=== PATIENT | female | born 1965 | race Caucasian/White ===

== ENCOUNTER → 2020-11-11 15:41 | Outpatient (CLI) | payer OTHER, SELFPAY ==
--- NOTE | 2020-11-11 15:46 | BI_ITS ---
MAMMOGRAPHY - BILATERAL SCREENING REASON FOR EXAM: Female, 55 years old. Routine annual screening examination. PERTINENT HISTORY: Aunt with breast cancer. TECHNIQUE: Digital bilateral breast axel (3D mammographic acquisition) in the CC and MLO projections. 2-D mediolateral oblique (MLO) and craniocaudad (CC) views of both breasts were obtained. CAD: Full Field Digital Mammography with Computer Added Detection was performed. COMPARISON: Comparison is made with prior outside examination dated 05/03/2016. FINDINGS: Breast Composition: There are scattered areas of fibroglandular density. There are no dominant masses or suspicious calcifications. Stable benign-appearing bilateral axillary lymph nodes. No other significant abnormalities are identified. There has been no significant change since the prior study. BI/SCRN MAMM (CAD)W/AXEL BILAT IMPRESSION: Stable bilateral screening mammogram. Yearly follow-up mammogram recommended. (A) ASSESSMENT CATEGORY: BIRADS Category 2: Benign. A letter regarding these results will be sent to the patient by the facility within 30 days. Approximately 10% of breast cancers are not detected by mammography. A normal mammogram should not delay biopsy of a clinically suspicious abnormality. [id number] Electronically Signed: Adiel Hurtado MD at 13:26 EDT , Service support ,
== END ==
PROVIDERS: Referring Provider Student in an Organized Health Care Education/Training Program; Visit Provider Student in an Organized Health Care Education/Training Program
DX: Z12.31 Encounter for screening mammogram for malignant neoplasm of breast (principal)
CPT/HCPCS: 77063; 77067

== ENCOUNTER 2021-02-05 07:20 | Day surgery (SDC) | payer OTHER, SELFPAY ==
[2021-02-03 16:46] LABS: Hematocrit 42.9 % (37-47); Hemoglobin 14.6 g/dL (12.0-15.0); Mean Corpuscular Hgb 29.5 pg (27.0-32.0); Mean Corpuscular Volume 86.7 fL (81-99); Mean Platelet Vol. 9.8 fl (6.2-12.0); Platelet Count 203 K/mm3 (150-450); Red Blood Count 4.95 M/mm3 (4.2-5.4); White Blood Count 7.3 K/mm3 (4.4-11.0)
[2021-02-03 17:50] LABS: Anion Gap 6 (5-15); BUN 14 mg/dL (7-18); BUN/Creat Ratio 19.2 RATIO (10-20); Calcium,Total 9.1 mg/dL (8.5-10.1); Chloride 105 mmol/L (98-107); Creatinine, Serum 0.73 mg/dL (0.55-1.02); EST Glomerular Filtration Rate 89 mL/min (>60); Est Glom Filt Rate - Afr Amer 107 mL/min (>60); Glucose 82 mg/dL (74-106); Potassium 3.7 mmol/L (3.5-5.1); Sodium Level 140 mmol/L (136-145)
[2021-02-05] VITALS (10 sets, daily range): BP systolic 122–160; BP diastolic 84–105; PULSE 71–83; RESP 16–17; TEMP 35.8–36.8; O2SAT 93–96; BMI 47.0
--- NOTE | 2021-02-05 07:23 | HP.PCM.OB_ITS ---
History and Physical Date of Admission: 02/05/21 Date: 02/03/2021 Name: VIRGINIA MURGUIA Age: 55 Date of : 1965 HISTORY OF PRESENT ILLNESS: On 02/03/2021, Virginia Murguia, a 55 year old female 2 0 0 0 2, presented for: -- Pre-Op -- Virginia is here for preop. [facility] for 02-05-21 for hysteroscoy, D Symphion. Consents signed. Instructions given. Voiced understanding. There have been no changes to her health since her last visit. Allergy and medication lists current. LSS as above. Presents to preop visit for hysterectomy, dilation and curettage for recurrent postmenopausal bleeding in setting of 12mm endometrial stripe. Prior EMB on 11/07/20 showed profilerative endometrium. shm ALLERGIES: No Known Drug Allergies MEDICATIONS HISTORY: Patient is also takin. No Meds REVIEW OF SYSTEMS: GENERAL - Denies fever, or chills SKIN - Denies skin changes EYES - Denies visual changes EARS - Denies difficulty hearing NOSE - Denies nasal congestion or bleeding MOUTH - Denies sore throat or difficulty swallowing NECK - Denies pain or swelling RESPIRATORY - Denies shortness of breath or wheezing CARDIOVASCULAR - Denies palpitations or chest pain GASTROINTESTINAL - IBS GENITOURINARY - Denies dysuria, frequency of urination, incontinence of urine MUSCULOSKELETAL - Denies joint or muscle pain NEUROLOGICAL - Denies localized numbness or weakness PSYCHIATRIC - Denies depression or anxiety ENDOCRINE - Denies heat or cold intolerance, weight loss or gain HEMATO-IMMUNOLOGIC - Denies excesive bleeding with cuts MENSTRUAL HISTORY: LMP Known?- Approximate-Month Known, LMP - 09/20/20 SOCIAL HISTORY: Alcohol Use - RARELY Smoking - Never Exercise - walking Seat Belt Use - always Employer - [employer] 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 Illicit Drug Use - None Sexual Activity - single sexual partner Residence - lives with SO Control - prior tubal PHYSICAL EXAMINATION BP- 126/84 Sitting, Right arm, large cuff Weight- 267.0 lbs Height- 62.75 inch BMI:[id number] CONSTITUTIONAL - NAD, well nourished, and well developed SKIN - No rash, lesions, or ulcers HEENT - normocephalic, atraumatic, sclerae anicteric NECK - No nodes, no nuchal rigidity and thyroid normal size and texture LUNGS - CTA x2 without wheezes, crackles or rales CARDIAC - Regular rate and rhythm without rubs, murmurs, or gallops NEUROLOGICAL - normal gait, normal balance, normal motor PSYCHIATRIC - A and O to time, place, person, mood and affect ASSESSMENT: 1. Postmenopausal Bleeding PLAN BY DIAGNOSIS: 1. Postmenopausal Bleeding Plan for hysteroscopy, dilation and curettage, Symphion as indicated for polypectomy Dfdx uterine polyp, profilerative endometrium, endometrial polyp Counseled on procedural indications, risks, benefits, alternatives Consents signed and reviewed Preop labs today NPO @ [place] prior to procedure, preop packet reviewed Assessment & Plan Assessment/Plan (1) Postmenopausal bleeding: (2) Endometrial thickening on ultrasound:
[2021-02-05] MEDS: Lactated Ringers 1,000 ML 100 ML IV ×2 (08:40→09:46)
--- NOTE | 2021-02-05 08:41 | HP.PCM_ITS ---
HPI - General General Date of Admission: 02/05/21 HPI Narrative Surgical History and Physical Date: 02/05/2021 Name: VIRGINIA MURGUIA Age: 55 Date of : 1965 Virginia Murguia, a 55 year old female 2 0 0 0 2, presents for Hysteroscopy, D on February 05, 2021 at 11:30. -- Plan for hysteroscopy, dilation and curettage for recurrent postmenopausal bleeding in setting of 12mm endometrial stripe. Prior EMB on 11/07/20 showed profilerative endometrium. shm MEDICATIONS HISTORY: Patient is also takin. No Meds ALLERGIES: No Known Drug Allergies Infections - Chicken pox and covid Illnesses - none Accidents - None Hospitalizations - None Review of Systems: GENERAL - Denies fever, or chills SKIN - Denies skin changes EYES - Denies visual changes EARS - Denies difficulty hearing NOSE - Denies nasal congestion or bleeding MOUTH - Denies sore throat or difficulty swallowing NECK - Denies pain or swelling RESPIRATORY - Denies shortness of breath or wheezing CARDIOVASCULAR - Denies palpitations or chest pain GASTROINTESTINAL - IBS GENITOURINARY - Denies dysuria, frequency of urination, incontinence of urine MUSCULOSKELETAL - Denies joint or muscle pain NEUROLOGICAL - Denies localized numbness or weakness PSYCHIATRIC - Denies depression or anxiety ENDOCRINE - Denies heat or cold intolerance, weight loss or gain HEMATO-IMMUNOLOGIC - Denies excesive bleeding with cuts SOCIAL HISTORY: Alcohol Use - RARELY Smoking - Never Exercise - walking Seat Belt Use - always Employer - [employer] 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 2015 ablation ; - 2. D and C, 2017 ; - 3. 2002 lap latasha ; - 4. laparoscopy for endometriosis 5. Hand surgery PHYSICAL EXAM BP- 126/84 Sitting, Right arm, large cuff Weight- 267.56708 lbs Height- 62.75 inch BMI:[id number] CONSTITUTIONAL - NAD, well nourished, and well developed SKIN - No rash, lesions, or ulcers HEENT - normocephalic, atraumatic, sclerae anicteric NECK - No nodes, no nuchal rigidity and thyroid normal size and texture LUNGS - CTA x2 without wheezes, crackles or rales CARDIAC - Regular rate and rhythm without rubs, murmurs, or gallops NEUROLOGICAL - normal gait, normal balance, normal motor PSYCHIATRIC - A and O to time, place, person, mood and affect External Genitial Vagina - non-tender without lesions Urethra/Urethral Meatus - non-tender Bladder - non-tender Vagina - vaginal sauceda are pink and moist without loss of rugae and no evidence of atropy Cervix - without cervical motion tenderness and has normal size and features without evident lesions Uterus - 5-6 cm in size, mobile and nontender Adnexa - clear without massess or tenderness [facility] Medical History (Updated 02/05/21 @ 07:[address] Caprice Childs MD) Alcohol use History of edema History of IBS Non-smoker Wears glasses Home Medications NK 01/29/21 [History Last Taken Unknown] Allergy/AdvReac Type Severity Reaction Status Date / Time No Known Allergies Allergy Verified 01/29/21 14:07 Surgical History Hx laparoscopic cholecystectomy Hx of dilation and curettage Hx of hand surgery Hx of laparoscopy Hx of tubal ligation Social History Smoking Status: Never smoker Vital Signs Vital Signs Vital Signs: 02/05/21 07:56 02/05/21 07:59 Temperature 97 F L Temperature Source Temporal Pulse Rate 80 Respiratory Rate 17 Respiratory Pattern Normal Blood Pressure 123/84 H Blood Pressure Mean 97 Blood Pressure Source Monitor Blood Pressure Position Semi-Fowlers Blood Pressure Location Left Arm Pulse Ox 96 Oxygen Delivery Method Room Air Weight Weight: 120.4 kg Body Mass Index (BMI) 47.0 Results Lab / Micro Data Result Diagrams: 02/03/21 16:11 02/03/21 16:11 Assessment & Plan Assessment/Plan (1) Endometrial thickening on ultrasound: (2) Postmenopausal bleeding: PLAN: ASSESSMENT/PLAN: 1. Postmenopausal Bleeding Plan for hysteroscopy, dilation and curettage, Symphion as indicated for polypectomy Dfdx uterine polyp, profilerative endometrium, endometrial polyp Counseled on procedural indications, risks, benefits, alternatives Consents signed and reviewed Preop labs appropriate COVID negative
--- NOTE | 2021-02-05 08:45 | EMB_PTH ---
PATIENT: ASHISH PEPPER [place] [facility] [place][id number] AGE/SX: 55/F ROOM: RE02/05/[address]: Dr. Caprice Childs MD : 1965 BED: DIS: 02/05/2021 SPEC #: [id number] RECD: 02/05/21 10:43 STATUS: HANNAH REJaqui #: [id number] PAUL: 02/05/21 08:[address]: Caprice Acosta DEPT: SURGICAL PATHOLOGY RECD BY: Aliyah Vieyra Tissues: Endometrium, NOS Procedures: Surgery Specimen Level IV HEADER OPERATION: Hysteroscopy, D & C Symphion PRE-OP DIAGNOSIS: Postmenopausal bleeding TISSUE SUBMITTED: Endometrial sampling MICROSCOPIC DIAGNOSIS Endometrium, biopsy: Mildly disordered transitional endometrium. Fragments of benign myometrial tissue. AM:jerod 02/06/2021 COMMENT Case has been reviewed in consultation with Dr. Palacio who concurs with the above diagnosis. IDC:SJ MICROSCOPIC DESCRIPTION Slides are reviewed. GROSS DESCRIPTION Received in fixative is one container labeled with the patient's name and designated endometrial sampling. The specimen consists of multiple fragments of hung-pink to hemorrhagic soft tissue that in aggregate measure 2.5 x 1 x 0.2 cm. The specimen is totally submitted in one cassette. / BARON:jerod 02/05/21 TC:5 [facility]: [id number]
[2021-02-05] MEDS: Lidocaine 1% (20 ml mdv) 20 ML Vial (08:58)
--- NOTE | 2021-02-05 09:44 | PCM.DC ---
Discharge Instructions Diet Discharge Diet: No restrictions Activity Discharge Activity: Return to Normal Activity May resume sexual activity in: 4 weeks Dressing / Incision Call your doctor if you observe: Fever of 101 or Higher, Using more than 1 pad per hour, Shortness of breath, Chest pain, Calf discomfort and Uncontrolled pain Follow Up Care Please Follow Up With: Caprice Childs MD When: 1-2 weeks Test Results: Test results from this visit will be discussed in further detail at your follow-up appointment, if applicable. Discharge Plan Admission Primary Reason for Your Visit: Hysteroscopy, Dilation and curettage Attending Provider: Caprice Acosta Discharge Orders/Prescriptions Prescriptions: New ibuprofen 800 mg tablet 800 mg PO Q8H PRN (Reason: pain) Qty: 30 RF: 0 oxycodone 5 mg capsule 5 mg PO Q6H PRN (Reason: pain) 7 Days Qty: 3 RF: 0 Referrals / Follow Up: GEE MORGAN [Other] Disposition Disposition (needs filled in before D/C Order can be placed): Home, Self Care
--- NOTE | 2021-02-05 10:47 | OP.PCM_ITS ---
Problems Associated Problem List Diagnoses (1) Status post hysteroscopy: (2) Endometrial thickening on ultrasound: (3) Postmenopausal bleeding: Report of Operation Date of Procedure: 02/05/21 Pre-Operative Diagnosis: 1. Postmenopausal bleeding 2. Endometrial thickening Post-Operative Diagnosis: 1. Postmenopausal bleeding 2. Endometrial thickening 3. Uterine adhesions Surgery/Procedure Performed:: 1. Hysteroscopy 2. Resection of intrauterine adhesions 3. Dilation and curettage Description of Surgical Findings:: Dense scar tissue within the lower and mid uterine cavity Large nabothian cyst at 6:00 on the cervix Surgeon: Caprice Acosta Type of Anesthesia: Local MAC Anesthesiologist: Maksim Jenkins Specimen's removed: Endometrial sampling Estimated Blood Loss (mL): 10 Fluids Replaced: 800 mL Description of Procedure: Indications: 55-year-old postmenopausal woman with a remote history of endometrial ablation approximately 5 years ago presents with recurrent postmenopausal bleeding. Bleeding began earlier this year. Pelvic ultrasound demonstrated 12 mm endometrial stripe. Subsequent endometrial biopsy was negative for pathology. Given recurrence of bleeding I advised her to proceed with hysteroscopy, dilation and curettage. Procedural risks, benefits, indications were reviewed and patient agreeable to proceed. Informed consent was obtained. Procedure: Patient was brought to the operating room and sinus performed. She is placed in the dorsal supine position and induced under MAC. She was repositioned to dorsolithotomy and examination under anesthesia was performed and straight catheterization of the bladder was done. The patient was placed into high lithotomy and a speculum placed vaginally. The cervix was injected at the anterior cervical lip using 1% lidocaine and a single-tooth tenaculum was placed at this site. Paracervical block was placed utilizing a total of 20 cc of 1% lidocaine and all. The uterus sounded and cervix was subsequently dilated. Hysteroscopy was performed using the Symphion scope demonstrating dense intrauterine adhesions preventing visualization of the uterine fundus and tubal ostia. I proceeded with Symphion resectoscopic hysteroscopy to resect the scar tissue until endometrium was adequately visualized and I could see the uterine fundus. Some scarring obstructing the tubal ostia visualization rem ained. Endometrial sampling was performed using the Symphion resector. Sharp curettage was subsequently performed. The procedure was complete. The tenaculum was removed from the cervix and the tenaculum site was not hemostatic at the left. An Allis clamp was placed here for 2 minutes. The Allis clamp was removed and hemostasis obtained. The patient was placed into dorsal supine, awakened, transferred to the recovery room without complication. Sponge counts were correct x2. Complications None Admit VTE Documentation VTE Present on Admission: No VTE Mechan Device Prophylaxis: SCD's VTE Pharm Prophylaxis ordered?: No
== END 2021-02-05 12:19 | disposition home or self-care (01) ==
LOC: SDC 07:21 → AC 07:21
PROVIDERS: Referring Provider Obstetrics & Gynecology; Visit Provider Obstetrics & Gynecology
PROC: 0UB98ZZ Excision of Uterus, Via Natural or Artificial Opening Endoscopic (ICD-10-PCS; CPT 58558; principal; 2021-02-05 08:30)
DX: N95.0 Postmenopausal bleeding (principal); R93.89 Abnormal findings on diagnostic imaging of other specified body structures; N88.8 Other specified noninflammatory disorders of cervix uteri; Z90.49 Acquired absence of other specified parts of digestive tract; Z86.16 Personal history of COVID-19
CPT/HCPCS: 58558; 36415; 80048; 85027; 86850; 86900; 86901; 88305; J7120; J2405

== ENCOUNTER 2021-05-07 05:21 | Day surgery (SDC) | payer OTHER, SELFPAY ==
--- NOTE | 2021-05-01 13:45 | EKG12_ITS ---
Test Reason : PRE OP Blood Pressure : / mmHG Vent. Rate : 077 BPM Atrial Rate : 077 BPM P-R Int : 152 ms QRS Dur : 078 ms QT Int : 382 ms P-R-T Axes : 045 078 035 degrees QTc Int : 432 ms Normal sinus rhythm Normal ECG Confirmed by DENAE SAUL, BLAKE ([id number]), proposal editor JORGE DIAZ ([id number]) on 05/04/2021 10:43:08 AM Referred By: Dali Arreaga Confirmed By:BLAKE PHILIPPE MD
[2021-05-01 14:48] LABS: Hematocrit 39.6 % (37-47); Hemoglobin 13.3 g/dL (12.0-15.0); Mean Corp Hgb Conc 33.6 g/dL (32-36); Mean Corpuscular Hgb 29.1 pg (27.0-32.0); Mean Corpuscular Volume 86.7 fL (81-99); Mean Platelet Vol. 9.9 fl (6.2-12.0); Platelet Count 199 K/mm3 (150-450); RBC Distribution Width CV 12.2 % (11.6-14.6); RBC Distribution Width SD 38.6 fl (35.1-43.9); Red Blood Count 4.57 M/mm3 (4.2-5.4)
[2021-05-01 15:17] LABS: Anion Gap 4 (5-15); BUN 13 mg/dL (7-18); Calcium,Total 8.8 mg/dL (8.5-10.1); Chloride 109 mmol/L (98-107); Creatinine, Serum 0.81 mg/dL (0.55-1.02); EST Glomerular Filtration Rate 78 mL/min (>60); Est Glom Filt Rate - Afr Amer 94 mL/min (>60); Glucose 100 mg/dL (74-106); Potassium 3.6 mmol/L (3.5-5.1); Sodium Level 142 mmol/L (136-145)
[2021-05-01 15:17] LABS: Magnesium 2.3 mg/dL (1.6-2.6)
--- NOTE | 2021-05-06 20:52 | PCM.HP.BLA ---
History and Physical Date of Admission: 05/07/21 HISTORY OF PRESENT ILLNESS: On 05/01/2021, Virginia Murguia, a 56 year old female 2 0 0 0 2, presented for total laparoscopic hysterectomy bilateral salpingo-oophorectomy, cystoscopy for post menopausal bleeding in the setting of intrauterine adhesions. ALLERGIES: No Known Drug Allergies MEDICAL HISTORY: Denies MEDICATIONS HISTORY: Patient is also takin. No Meds PAST HISTORY: Breast/Ovarian/Colon Cancers - Denies Infections - Chicken pox and covid Illnesses - none Accidents - None History of Abnormal PAPS - unknown Hospitalizations - None SURGICAL HISTORY: 1. 2015 ablation 2. D and C, 2018 3. 2002 lap latasha 4. 02/05/2021 Hysteroscopy resection of intrauterine adhesions d& c Caprice Childs MD MENSTRUAL HISTORY: LMP Known?- Approximate-Month Known, LMP - 09/20/20 PAST PREGNANCIES: Total Pregnancies - 2; Full Term Pregnancies - 2; Premature - 0; Abortions, Induced - 0; Abortions, Spontaneous - 0; Ectopics - 0; Multiple Births - 0; Living Children - 2 FAMILY HISTORY: No hx of blood clots, bleeding disorders SOCIAL HISTORY: Alcohol Use - RARELY Smoking - Never Drug use - never REVIEW OF SYSTEMS: GENERAL - Denies fever, or chills SKIN - Denies skin changes EYES - wears eye glasses EARS - Denies difficulty hearing NOSE - Denies nasal congestion or bleeding MOUTH - Denies sore throat or difficulty swallowing NECK - Denies pain or swelling RESPIRATORY - Denies shortness of breath or wheezing CARDIOVASCULAR - Denies palpitations or chest pain GASTROINTESTINAL - Denies nausea, vomiting, diarrhea, constipation GENITOURINARY - Denies dysuria, frequency of urination, incontinence of urine MUSCULOSKELETAL - Denies joint or muscle pain NEUROLOGICAL - Denies localized numbness or weakness PSYCHIATRIC - Denies depression or anxiety ENDOCRINE - Denies heat or cold intolerance, weight loss or gain HEMATO-IMMUNOLOGIC - Denies excessive bleeding with cuts BP- 110/74 Sitting, Right arm, large cuff Temp- 98.3 Taken Orally Weight- 269.0 lbs Height- 62.75 inch BMI:48.03 CONSTITUTIONAL - NAD, well nourished, and well developed SKIN - No rash, lesions, or ulcers HEENT - Normocephalic, PERRLA, EOMI NECK - No nodes, no nuchal rigidity and thyroid normal size and texture LUNGS - CTA x2 without wheezes, crackles or rales CARDIAC - Regular rate and rhythm without rubs, murmurs, or gallops ABDOMEN - Without hepatosplenomegaly, distention, masses, rebound, or guarding; normal bowel sounds; no hernias EXTREMITIES - No edema or calf tenderness NEUROLOGICAL - Cranial nerves II-XII grossly intact PSYCHIATRIC - A and O to time, place, person, mood and affect ASSESSMENT: PLAN BY DIAGNOSIS: 1. Postmenopausal Bleeding Planned for TLH-BSO cystoscopy for post menopausal bleeding. R/B/A discussed: Risks include but are not limited to: risk of bleeding to the point of transfusion, infection, injury to surrounding tissues including bowel/bladder/major vessels requiring pack catheter, VTE, ICU admission.
[2021-05-07] VITALS (12 sets, daily range): BP systolic 97–148; BP diastolic 66–89; PULSE 74–83; RESP 15–16; TEMP 35.8–36.6; O2SAT 92–98; BMI 47.2
[2021-05-07] MEDS: Gabapentin 600 MG Tablet PO (05:30)
[2021-05-07] MEDS: Heparin Injection 5,000 UNITS/ML Syringe 5000 UNITS SC (05:30)
[2021-05-07] MEDS: Lactated Ringers 1,000 ML 40 ML IV ×3 (06:14→10:46)
[2021-05-07] MEDS: Celecoxib 200 MG Capsule 400 MG PO (06:14)
[2021-05-07] MEDS: Acetaminophen 500 MG Tablet 1000 MG PO (06:14)
[2021-05-07 06:26] LABS: Bedside Glucose 78 mg/dL (70-110)
[2021-05-07] MEDS: Cefazolin 2 GM in 0.9% Normal Saline 100 ML IV (07:30)
--- NOTE | 2021-05-07 07:30 | HYST_PTH ---
PATIENT: ASHISH PEPPER [place] [facility] [place][id number] AGE/SX: 56/F ROOM: RE05/07/[address]: Dr. Dali Arreaga, : 1965 BED: DIS: 05/07/2021 SPEC #: [id number] RECD: 05/07/21 10:19 STATUS: HANNAH SHANNAN #: [id number] PAUL: 05/07/21 07:[address]: Dali Arreaga DEPT: SURGICAL PATHOLOGY RECD BY: Aliyah Vieyra Tissues: Uterus, NOS Procedures: Surgery Specimen Level V HEADER OPERATION: Total laparoscopic hysterectomy, salpingo-oophorectomy, cystoscopy PRE-OP DIAGNOSIS: Postmenopausal bleeding TISSUE SUBMITTED: Uterus, cervix, bilateral fallopian tubes and ovaries MICROSCOPIC DIAGNOSIS Uterus, hysterectomy: Cervix ? nabothian cysts and mild chronic inflammation. Endometrium ? simple hyperplasia without atypia. Myometrium ? adenomyosis. Right fallopian tube ? hemosalpinx and focal changes consistent with endometriosis. Right ovary ? corpora albicantia. Left fallopian tube ? hemosalpinx. Left ovary ? corpus luteal cyst and corpora albicantia. AM:jerod 05/11/2021 MICROSCOPIC DESCRIPTION Slides are reviewed. GROSS DESCRIPTION Received in fixative is one container labeled with the patient's name and designated uterus, cervix, bilateral fallopian tubes and ovaries. The specimen consists of a hysterectomy specimen consisting of uterus with cervix and attached bilateral fallopian tubes and ovaries. The uterus with cervix weighs 127 gm and measures 8 x 6 x 4.5 cm. The serosal surface is smooth. The ectocervical mucosa is unremarkable. The external os is oval in contour. The endocervical canal measures 3 cm in length and the endocervical mucosa is unremarkable. Sections of the cervix reveal a few cysts filled with mucoid material. The triangular endometrial cavity measures 4 cm in length and up to 3 cm in width. The endometrium measures 0.1 cm in thickness. A submucosal solid nodular mass is noted measuring 1.2 cm in greatest dimension, ? a possible submucosal leiomyoma. Sections of the uterine wall reveal trabeculated cut surfaces suspicious for adenomyosis. The uterine wall measures up to 3 cm in thickness. The right fallopian tube measures 5 cm in length and 0.5 to 1 cm in diameter. The proximal portion of the uterine wall measures up to 1 cm in diameter. The fallopian tube appears to be interrupted in the middle. The fimbrial end is identified. Sections of the proximal portion of the fallopian tube reveals dilated lumen. The soft to cystic right ovary measures 3.5 x 2 x 1.5 cm. Sections reveal a few cysts, the largest measuring 0.5 cm in greatest dimension. The left fallopian tube measures 4 cm in length and up to 0.7 cm in diameter. The fimbrial end is identified. The proximal portion of the fallopian tube is dilated and filled with bloody fluid. The fallopian tube appears to be interrupted in the middle. The soft to cystic left ovary measures 3 x 2 x 1.6 cm. Multiple metallic clips are noted on the surface. Sections reveal a few cysts, the largest cyst measures 0.4 cm in greatest dimension. Paradi Operator sections are submitted in 11 cassettes as follows: 1 - anterior cervix, 2 - posterior cervix, 3 & 4 - anterior uterine wall, 5 & 6 - posterior uterine wall, 7 ? submucosal nodular mass, entirely submitted, 8 ? right fallopian tube, 9??right ovary, 10 ? left fallopian tube, 11 ? left ovary. / SJ:jerod 05/07/21 The remainder of endometrium and adjacent myometrium are submitted in cassettes 12-15. / AM:jerod 05/08/21 TC:5 CPT: 25298
[2021-05-07] MEDS: Ondansetron 4 MG/2 ML Vial IV (09:39)
--- NOTE | 2021-05-07 09:40 | PCM.OPRPT ---
Report of Operation Date of Procedure: 05/07/21 Pre-Operative Diagnosis: Postmenopausal bleeding Post-Operative Diagnosis: Postmenopausal bleeding Surgery/Procedure Performed:: Total laparoscopic hysterectomy, bilateral salpingo-oophorectomy, cystoscopy Description of Surgical Findings:: Normal-appearing external genitalia. Minimal uterine descensus. Uterus sounded to 8 cm. Normal-appearing bilateral ovaries and fallopian tubes, normal-appearing uterus. Clips noted on left ovary. Cystoscopy: Intact bladder dome, bilateral ureteral jets. traveling crane operator: Aguilar Arreaga Type of Anesthesia: General Estimated Blood Loss (mL): 250cc Fluids Replaced: 1400 cc Description of Procedure: Indications/Risks/Benefits: 56-year-old female with postmenopausal bleeding and a history of endometrial ablation. Decision made for total laparoscopic hysterectomy, bilateral salpingo-oophorectomy, cystoscopy was made. All risk, benefits, alternatives were discussed with the patient. Risks include but are not limited to: Risk of bleeding to the point of transfusion, infection, injury to surrounding tissue including bowel/bladder/large vessels potentially requiring prolonged Carrero catheter use, VTE, ICU admission. Patient aware and consented. Procedure: Patient taken to the operating room and placed under general anesthesia. Patient placed in the dorsal lithotomy position and prepped and draped in the usual sterile fashion. Weighted speculum placed in the posterior vagina and Azevedo retractor used to visualize the cervix. Anterior lip of the cervix grasped with a single-tooth tenaculum. Cervix sequentially dilated and uterus sounded to 8 cm. [id number] stitches placed at the 3 and 9 o'clock position on the cervix. Medium manipulator placed. Retractors removed. Gloves changed and attention turned to the anterior abdominal wall. Vertical supraumbilical incision made with scalpel subcutaneous tissue dissected from fascia bluntly. Fascia grasped with Ean clamps and scalpel incised fascia between. Each end of the fascial incision tagged with suture. Peritoneum had been entered. 10 trocar placed. Abdomen insufflated. Right and left trochars placed under direct visualization. Right 8 mm, left 5 mm. AirSeal on right trocar. Bilateral ureters identified. Abdomen inspected and noted as above. Left round ligament coagulated and cut. Anterior leaf of the broad ligament and vesicouterine peritoneum identified, dissected. Bladder flap dissected away from the anterior uterus and cervix. Left IP ligament coagulated and cut dissection carried down the left side of the uterus. Left uterine vessels identified coagulated and cut in several locations. Attention then turned to the right side of the uterus and right round ligament incised and anterior leaf of the broad ligament dissected away towards the bladder. Vesicouterine peritoneum identified and bladder flap continued and completed across towards midline. Further dissection of bladder peritoneum away from the anterior cervix completed. Right IP ligament coagulated and cut. Dissection carried down the right side of the uterus. Right uterine arteries identified coagulated cut and several locations. Bilateral uterine arteries coagulated and cut allowing them to fall away from the cervix and colpotomy cup. Uterus anteverted and posterior colpotomy made carrying around counterclockwise. Colpotomy completed. Uterus, bilateral tubes and ovaries removed through the vagina. Abdomen inspected noting hemostasis at the vaginal cuff. Abdomen desufflated. Moved below to close colpotomy vaginally. Vagina grasped with Allis clamps. Run locking stitch started at each corner colpotomy and carried towards the midline, sutures tied together at midline. Vagina irrigated and closure was noted to be hemostatic. Abdomen reinsufflated for inspection of the abdomen vaginal closure was hemostatic, IP hemostatic bilaterally. Abdomen desufflated, trochars removed. Carrero catheter removed. Cystoscopy completed noting above findings. Abdominal incisions closed. Supraumbilical incision: Fascia grasped with Ean clamps and closed with a running stitch. Skin closed with a running subcuticular stitch. Bilateral lower quadrant incisions closed with suture. Skin glue placed. At the end of the procedure all needle, lap, sponge counts were correct. UOP: 400cc Complications None
--- NOTE | 2021-05-07 09:58 | PCM.DC ---
Discharge Instructions Diet Discharge Diet: No restrictions Activity Discharge Activity: Return to Normal Activity and May Shower May resume sexual activity in: 6 weeks Weight Bearing Status: Weight bearing as tolerated Lifting Restrictions: No greater than 25 pounds Dressing / Incision Call your doctor if your incision/area has: Continuous Slow Oozing, Increased Redness and Foul Smelling Discharge Call your doctor if you observe: Fever of 101 or Higher, Change in Color, Inability to urinate, Using more than 1 pad per hour, Shortness of breath, Dizziness, Swelling in the ankles, Chest pain and Calf discomfort Cleanse incision/area with: Soap & Water Follow Up Care Please Follow Up With: Dali Arreaga DO When: 2 week post operative visit Test Results: Test results from this visit will be discussed in further detail at your follow-up appointment, if applicable. Discharge Plan Admission Primary Reason for Your Visit: Hysterectomy Attending Provider: Dali Arreaga Discharge Orders/Prescriptions Prescriptions: New oxycodone 5 mg tablet 5 mg PO Q6H PRN (Reason: pain (scale score 7-10)) 5 Days Qty: 24 RF: 0 Other Ambulatory Orders: 12 Lead EKG (Routine) Location: None Selected Ordered By: Dr. Dali Arreaga Referrals / Follow Up: [facility] [Other] Disposition Disposition (needs filled in before D/C Order can be placed): Home, Self Care
--- NOTE | 2021-05-07 10:31 | SUR.PHASEI ---
Monitored on etCO2 per [facility]AS protocol. within normal limits. simple mask for 6L O2 per eras protocol. Patient tolerating. will cont to monitor.
--- NOTE | 2021-05-07 12:14 | SUR.PHASEII ---
MONITORING PHASE 2 IN PACU; REQUIRING 2 L O2 TO MAINTAIN > 90%
[2021-05-07] MEDS: Ipratropium/Albuterol Sulfate 3 ML AMPUL.NEB INHALATION (13:18)
== END 2021-05-07 14:14 | disposition home or self-care (01) ==
LOC: SDC 05:22 → AC 05:22
PROVIDERS: Anesthesiology; Referring Provider Student in an Organized Health Care Education/Training Program; Visit Provider Student in an Organized Health Care Education/Training Program
PROC: 0UT94ZZ Resection of Uterus, Percutaneous Endoscopic Approach (ICD-10-PCS; CPT 58571; principal; 2021-05-07 07:15)
DX: N72 Inflammatory disease of cervix uteri (principal); N85.01 Benign endometrial hyperplasia; N83.6 Hematosalpinx; N83.12 Corpus luteum cyst of left ovary; N83.292 Other ovarian cyst, left side; N83.291 Other ovarian cyst, right side; N95.0 Postmenopausal bleeding
CPT/HCPCS: 58571; 36415; 80048; 82962; 83735; 85027; 86850; 86900; 86901; 88307; 93005; J7120; J2405

== ENCOUNTER → 2022-04-15 | Outpatient (CLI) | payer OTHER, SELFPAY ==
[2022-04-15 10:21] LABS: Absolute Lymphocyte Count 1.64 X10^3/uL (0.83-4.51); Absolute Neutrophil Count 3.6 X10^3/uL (2.0-7.7); Basophil# 0.06 X10^3/uL; Eosinophil# 0.08 X10^3/uL; Eosinophils% 1.4 % (0-5); Hematocrit 42.6 % (37-47); Lymphocyte # 1.64 X10^3/ul (0.83-4.51); Lymphocyte % 28.2 % (19-41); Mean Corp Hgb Conc 32.9 g/dL (32-36); Mean Corpuscular Hgb 28.5 pg (27.0-32.0); Mean Corpuscular Volume 86.8 fL (81-99); Mean Platelet Vol. 10.2 fl (6.2-12.0); Monocyte# 0.37 X10^3/uL; Monocyte% 6.4 % (0-10); NRBC Flagged by Analyzer 0 % (0-5); Platelet Count 182 K/mm3 (150-450); RBC Distribution Width CV 12.3 % (11.6-14.6); RBC Distribution Width SD 39.2 fl (35.1-43.9); Red Blood Count 4.91 M/mm3 (4.2-5.4); White Blood Count 5.8 K/mm3 (4.4-11.0)
[2022-04-15 11:53] LABS: ALB/GLOB Ratio 1.1 RATIO (0.9-2.4); AST(SGOT) 25 U/L (15-37); Alanine Aminotransfer ALT/SGPT 45 U/L (13-56); Albumin, Serum 3.6 g/dL (3.2-5.0); Alkaline Phosphatase 70 U/L (45-117); Anion Gap 4 (5-15); BUN 10 mg/dL (7-18); BUN/Creat Ratio 14.8 RATIO (10-20); Calcium,Total 8.9 mg/dL (8.5-10.1); Chloride 110 mmol/L (98-107); Cholesterol 204 mg/dL (200); Creatinine, Serum 0.68 mg/dL (0.55-1.02); EST Glomerular Filtration Rate 96 mL/min (>60); Est Glom Filt Rate - Afr Amer 116 mL/min (>60); Globulin 3.3 g/dL (2.2-4.2); Glucose 84 mg/dL (74-106); High Density Lipoprotein 43 mg/dL; Potassium 4.1 mmol/L (3.5-5.1); Protein, Total 6.9 g/dL (6.4-8.2); Sodium Level 142 mmol/L (136-145); Triglycerides 130 mg/dL; Very Low Density Lipoprotein 26 mg/dL (5-40)
== END | disposition home or self-care (01) ==
LOC: MFPLAB 08:26
PROVIDERS: PCP Family Medicine; Referring Provider Family Medicine; Visit Provider Family Medicine
DX: Z00.00 Encounter for general adult medical examination without abnormal findings (principal); Z13.0 Encounter for screening for diseases of the blood and blood-forming organs and certain disorders involving the immune mechanism; Z13.1 Encounter for screening for diabetes mellitus; Z13.29 Encounter for screening for other suspected endocrine disorder
CPT/HCPCS: 36415; 80053; 80061; 83036; 84443; 85025

== ENCOUNTER → 2022-05-27 | Outpatient (CLI) | payer OTHER, SELFPAY ==
--- NOTE | 2022-05-27 08:34 | BI_ITS ---
MAMMOGRAPHY - BILATERAL SCREENING REASON FOR EXAM: Female, 57 years old. Routine annual screening examination. PERTINENT HISTORY: Aunt with breast cancer. TECHNIQUE: Digital bilateral breast axel (3D mammographic acquisition) in the CC and MLO projections. 2-D mediolateral oblique (MLO) and craniocaudad (CC) views of both breasts were obtained. CAD: Full Field Digital Mammography with Computer Added Detection was performed. COMPARISON: Comparison is made with prior study dated 11/11/2020. FINDINGS: Breast Composition: There are scattered areas of fibroglandular density. There are no dominant masses or suspicious calcifications. Stable small benign-appearing bilateral axillary lymph nodes. No other significant abnormalities are identified. There has been no significant change since the prior study. BI/SCRN MAMM (CAD)W/AXEL BILAT IMPRESSION: Stable bilateral screening mammogram. Yearly follow-up mammogram recommended. (A) ASSESSMENT CATEGORY: BIRADS Category 2: Benign. A letter regarding these results will be sent to the patient by the facility within 30 days. Approximately 10% of breast cancers are not detected by mammography. A normal mammogram should not delay biopsy of a clinically suspicious abnormality. [id number] Electronically Signed: Adiel Hurtado MD at 9:59 EST ,
== END | disposition home or self-care (01) ==
LOC: OPBI 08:25
PROVIDERS: PCP Family Medicine; Referring Provider Student in an Organized Health Care Education/Training Program; Visit Provider Student in an Organized Health Care Education/Training Program
DX: Z12.31 Encounter for screening mammogram for malignant neoplasm of breast (principal); Z80.3 Family history of malignant neoplasm of breast
CPT/HCPCS: 77063; 77067

== ENCOUNTER → 2023-06-14 | Outpatient (CLI) | payer OTHER, SELFPAY ==
--- NOTE | 2023-06-14 07:40 | BI_ITS ---
MAMMOGRAPHY - BILATERAL SCREENING 3-D TOMOSYNTHESIS REASON FOR EXAM: Female, 58 years old. Routine annual screening mammogram. PERTINENT HISTORY: Aunt with breast cancer, age not identified. TECHNIQUE: 2-D mammograms and 3-D Tomosynthesis of the breast (s) were performed. CAD was performed. COMPARISON: May 27, 2022, November 11, 2020 FINDINGS: Stable fatty replaced breasts. Stable scattered benign calcifications. No dominant masses, suspicious microcalcifications, asymmetries, skin thickening or nipple retraction. BI/SCRN MAMM (CAD)W/AXEL BILAT IMPRESSION: No interval change and no mammographic signs of malignancy. Routine yearly mammograms recommended. ASSESSMENT CATEGORY: BIRADS Category 2: Benign. A letter regarding these results will be sent to the patient by the facility within 30 days. FOLLOW UP RECOMMENDATION: Yearly follow up mammogram recommended. (A) Approximately 10% of breast cancers are not detected by mammography. A normal mammogram should not delay biopsy of a clinically suspicious abnormality. Electronically Signed: Rick Allen MD at 14:10 EST ,
== END | disposition home or self-care (01) ==
LOC: OPBI 07:39
PROVIDERS: PCP Family Medicine; Referring Provider Family Medicine; Visit Provider Family Medicine
DX: Z12.31 Encounter for screening mammogram for malignant neoplasm of breast (principal)
CPT/HCPCS: 77063; 77067

== ENCOUNTER → 2023-06-14 | Outpatient (CLI) | payer OTHER, SELFPAY ==
[2023-06-14 10:08] LABS: Absolute Lymphocyte Count 1.41 X10^3/uL (0.83-4.51); Absolute Neutrophil Count 3.5 X10^3/uL (2.0-7.7); Basophil# 0.06 X10^3/uL; Basophil% 1.1 % (0-1); Eosinophil# 0.03 X10^3/uL; Eosinophils% 0.6 % (0-5); Hematocrit 43.4 % (37-47); Hemoglobin 14.4 g/dL (12.0-15.0); Lymphocyte # 1.41 X10^3/ul (0.83-4.51); Lymphocyte % 26.4 % (19-41); Mean Corp Hgb Conc 33.2 g/dL (32-36); Mean Corpuscular Hgb 29.3 pg (27.0-32.0); Mean Corpuscular Volume 88.2 fL (81-99); Mean Platelet Vol. 10.4 fl (6.2-12.0); Monocyte# 0.37 X10^3/uL; Monocyte% 6.9 % (0-10); NRBC Flagged by Analyzer 0 % (0-5); Neutrophil # 3.47 X10^3/uL (2.7-7.7); Neutrophil % 64.8 % (47-70); Platelet Count 185 K/mm3 (150-450); RBC Distribution Width CV 12.1 % (11.6-14.6); RBC Distribution Width SD 39.1 fl (35.1-43.9); Red Blood Count 4.92 M/mm3 (4.2-5.4); White Blood Count 5.4 K/mm3 (4.4-11.0)
[2023-06-14 10:34] LABS: AST(SGOT) 21 U/L (15-37); Alanine Aminotransfer ALT/SGPT 45 U/L (13-56); Albumin, Serum 3.5 g/dL (3.2-5.0); Alkaline Phosphatase 59 U/L (45-117); Anion Gap 4 (5-15); BUN 11 mg/dL (7-18); BUN/Creat Ratio 16.4 RATIO (10-20); Calcium,Total 8.5 mg/dL (8.5-10.1); Chloride 109 mmol/L (98-107); Cholesterol 205 mg/dL (200); Creatinine, Serum 0.67 mg/dL (0.55-1.02); EST Glomerular Filtration Rate 96 mL/min (>60); Est Glom Filt Rate - Afr Amer 117 mL/min (>60); Globulin 3.4 g/dL (2.2-4.2); Glucose 95 mg/dL (74-106); High Density Lipoprotein 42 mg/dL; Potassium 3.9 mmol/L (3.5-5.1); Protein, Total 6.9 g/dL (6.4-8.2); Sodium Level 140 mmol/L (136-145); Thyroid Stim Hormone (TSH) 2.52 uIU/mL (0.358-3.74); Triglycerides 153 mg/dL; Very Low Density Lipoprotein 31 mg/dL (5-40)
[2023-06-14 10:36] LABS: Hemoglobin A1c 4.8 % (3.8-5.6)
== END | disposition home or self-care (01) ==
LOC: MFPLAB 08:11
PROVIDERS: PCP Family Medicine; Visit Provider Family Medicine
DX: Z00.00 Encounter for general adult medical examination without abnormal findings (principal); Z13.0 Encounter for screening for diseases of the blood and blood-forming organs and certain disorders involving the immune mechanism; Z13.1 Encounter for screening for diabetes mellitus; Z13.220 Encounter for screening for lipoid disorders; Z13.29 Encounter for screening for other suspected endocrine disorder
CPT/HCPCS: 36415; 80053; 80061; 83036; 84443; 85025

== ENCOUNTER → 2024-08-21 | Outpatient (CLI) | payer OTHER, SELFPAY ==
[2024-08-21 10:54] LABS: Absolute Lymphocyte Count 1.39 X10^3/uL (0.83-4.51); Absolute Neutrophil Count 3.2 X10^3/uL (2.0-7.7); Basophil# 0.06 X10^3/uL; Basophil% 1.2 % (0-1); Eosinophil# 0.04 X10^3/uL; Eosinophils% 0.8 % (0-5); Hematocrit 43.1 % (37-47); Hemoglobin 14.8 g/dL (12.0-15.0); Lymphocyte # 1.39 X10^3/ul (0.83-4.51); Lymphocyte % 27.3 % (19-41); Mean Corp Hgb Conc 34.3 g/dL (32-36); Mean Corpuscular Hgb 29.4 pg (27.0-32.0); Mean Corpuscular Volume 85.5 fL (81-99); Mean Platelet Vol. 10.1 fl (6.2-12.0); Monocyte# 0.41 X10^3/uL; NRBC Flagged by Analyzer 0 % (0-5); Neutrophil # 3.19 X10^3/uL (2.7-7.7); Neutrophil % 62.5 % (47-70); Platelet Count 188 K/mm3 (150-450); RBC Distribution Width CV 11.9 % (11.6-14.6); RBC Distribution Width SD 36.9 fl (35.1-43.9); Red Blood Count 5.04 M/mm3 (4.2-5.4); White Blood Count 5.1 K/mm3 (4.4-11.0)
[2024-08-21 12:05] LABS: Cholesterol 221 mg/dL (<=200); High Density Lipoprotein 45 mg/dL; Low Density Lipoprotein Calc. 150 mg/dL; Triglycerides 132 mg/dL; Very Low Density Lipoprotein 26 mg/dL (5-40); Vitamin D,25 Hydroxy 17.1 ng/mL (30-100); cholesterol:hdl ratio screen 4.96
[2024-08-21 12:44] LABS: ALB/GLOB Ratio 1.6 RATIO (0.9-2.4); Alanine Aminotransfer ALT/SGPT 51 U/L (<=34); Albumin, Serum 4.3 g/dL (3.5-5.0); Alkaline Phosphatase 66 U/L (35-104); Anion Gap 11 (5-15); BUN 10 mg/dL (4-19); BUN/Creat Ratio 14.2 RATIO (10-20); Calcium,Total 9.2 mg/dL (7.6-11.0); Chloride 104 mmol/L (98-108); EST Glomerular Filtration Rate 101 (>60); Globulin 2.7 g/dL (2.2-4.2); Glucose 97 mg/dL (70-99); Potassium 4.2 mmol/L (3.3-5.1); Sodium Level 139 mmol/L (133-145); Total Bilirubin 0.69 mg/dL (0.00-1.30)
[2024-08-21 13:08] LABS: AST(SGOT) 31 U/L (<=31)
== END | disposition home or self-care (01) ==
PROVIDERS: PCP Family Medicine; Referring Provider Family Medicine; Visit Provider Family Medicine
DX: Z00.00 Encounter for general adult medical examination without abnormal findings (principal)
CPT/HCPCS: 36415; 80053; 80061; 82306; 83036; 85025